=== PATIENT | male | born 1990 | race Caucasian/White ===

== ENCOUNTER 2024-02-01 10:09 | Emergency (ER) | payer OTHER ==
[~2024-02-01] VITALS: Ht 175.3 cm; Wt 83.7 kg
[2024-02-01 11:54] VITALS: BP 129/80; TEMP 99.2; O2SAT 97
== END 2024-02-01 12:01 | disposition home or self-care (01) ==
LOC: M ED 10:09
DX: S43.51XA Sprain of right acromioclavicular joint, initial encounter (principal); Y92.019 Unspecified place in single-family (private) house as the place of occurrence of the external cause; Y93.9 Activity, unspecified; Y99.9 Unspecified external cause status; W10.8XXA Fall (on) (from) other stairs and steps, initial encounter; F10.10 Alcohol abuse, uncomplicated